=== PATIENT | female | born 1990 | race Caucasian/White ===

== ENCOUNTER 2016-07-29 23:21 | Emergency (ER) | payer BC, OTHER ==
[2016-07-29 23:21] VITALS: BMI 31.6
[2016-07-29 23:56] VITALS: TEMP 98.8
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
[2016-07-30 03:53] VITALS: BP 110/70; PULSE 80; RESP 16; O2SAT 99
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
== END 2016-07-30 03:53 | disposition home or self-care (01) ==
LOC: ED 23:21
DX: S06.0X9A Concussion with loss of consciousness of unspecified duration, initial encounter (principal); V49.9XXA Car occupant (driver) (passenger) injured in unspecified traffic accident, initial encounter

== ENCOUNTER 2017-07-02 19:13 | Emergency (ER) | payer BC, OTHER ==
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
[2017-07-02 19:36] VITALS: O2SAT 100; BMI 26.6
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
[2017-07-02 21:31] VITALS: BP 115/72; PULSE 80; RESP 17; TEMP 98
== END 2017-07-02 21:31 | disposition home or self-care (01) ==
LOC: ED 19:13
DX: S00.83XA Contusion of other part of head, initial encounter (principal); S09.90XA Unspecified injury of head, initial encounter; Y04.0XXA Assault by unarmed brawl or fight, initial encounter; F17.210 Nicotine dependence, cigarettes, uncomplicated